=== PATIENT | male | born 1985 | race Caucasian/White ===

== ENCOUNTER 2020-02-24 11:51 | Emergency (ER) | payer MEDICAID ==
[~2020-02-24] VITALS: Ht 177.8 cm; Wt 68.0 kg
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
[2020-02-24 12:13] VITALS: BP 146/97
[2020-02-24] MEDS ORDERED: CYCLOBENZAPRINE10 MG ORAL (12:21)
[2020-02-24] MEDS ORDERED: NORCO 5-325 TA1 EAC1 ORAL (12:21)
[2020-02-24] MEDS ORDERED: IBUPROFEN600 M1 ORAL (12:21)
[2020-02-24] MEDS ORDERED: GENTAK5 ML RIGHT EYE (12:23)
[2020-02-24 12:30] VITALS: BP 146/97
--- NOTE | 2020-02-24 12:30 | NUR ---
ER DISCHARGE NOTE: Patient is cleared to be discharged per ERMD, pt is aox4, on room air, with stable vital signs. pt was given dc and prescription instructions, pt was able to verbalize understanding, pt id bandremoved without complications. pt is able to ambulate with steady gait. pt took all belongings.
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
== END 2020-02-24 13:20 | disposition home or self-care (01) ==
LOC: EMR 13:04
DX: S62.92XA Unspecified fracture of left hand, initial encounter for closed fracture (principal); X58.XXXA Exposure to other specified factors, initial encounter; Y92.9 Unspecified place or not applicable; H10.9 Unspecified conjunctivitis; M54.10 Radiculopathy, site unspecified
CPT/HCPCS: 99282

== ENCOUNTER 2020-06-13 20:19 | Emergency (ER) | payer MEDICAID ==
[~2020-06-13] VITALS: Ht 177.8 cm; Wt 70.3 kg
[~2020-06-13 20:19] MED LIST: CYCLOBENZAPRINE10 MG ORAL; GENTAK5 ML RIGHT EYE; IBUPROFEN600 M1 ORAL; NORCO 5-325 TA1 EAC1 ORAL
[2020-06-13 20:52] VITALS: BP 151/96
--- NOTE | 2020-06-13 20:54 | NUR ---
ED Nurse Note: Patient came in ambulatory triage complaints of abcess on right lower leg and left upper leg x3 days, patient AOx4, ambulatory, vital signs stable
[2020-06-13] MEDS ORDERED: Lidocaine 1%/ 10mg/ml/EPI 0.01mg/ml 20ml INJ ONE (21:00)
[2020-06-13] MEDS ORDERED: HYDROCODON-ACE1 EA15 ORAL (21:05)
[2020-06-13] MEDS ORDERED: AUGMENTIN 875-1 EAC1 ORAL (21:05)
[2020-06-13] MEDS ORDERED: BACTRIM DS TAB1 EAC1 ORAL (21:05)
--- NOTE | 2020-06-13 21:11 | NUR ---
ER DISCHARGE NOTE: Patient is cleared to be discharged per ERMD, pt is aox4, on room air, with stable vital signs. pt was given dc and prescription instructions, pt was able to verbalize understanding, pt id band removed without complications. pt is able to ambulate with steady gait. pt took all belongings.
--- NOTE | 2020-06-13 23:12 | Emergency Room Report ---
History of Present Illness General Chief Complaint: Skin Rash/Abscess Source: Patient Present Illness HPI Patient is a 34-year-old male presents for increased pain to the right lower extremity. Onset over the past 3 days. Patient reports having small lesion to his leg which had increased in size over time. Had attempted to squeeze this with subsequent redness and pain. Previous history of similar abscess in the past per denies any injection drug use. Patient is cigarette smoker. Denies any fever. Denies any groin injuries. 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 Patient History Past Medical History: see triage record Reviewed Nursing Documentation: PMH: Agreed; PSxH: Agreed Nursing Documentation-PMH Past Medical History: No Stated History Review of Systems All Other Systems: negative except mentioned in HPI Physical Exam Vital Signs Date Time Temp Pulse Resp B/P (MAP) Pulse Ox O2 Delivery O2 Flow Rate FiO2 06/13/20 20:28 98.4 110 20 151/96 (114) 98 Room Air General Appearance: well appearing, no apparent distress, alert, GCS 15 Head: normocephalic, atraumatic ENT: hearing grossly normal, normal voice Neck: full range of motion, supple Respiratory: lungs clear, no respiratory distress, speaking full sentences Gastrointestinal: normal inspection, non tender Musculoskeletal: no calf tenderness Neurologic: normal gait Psychiatric: mood/affect normal Skin: other - Area to the lateral aspect of the right knee approximately 2 cm in diameter with erythema and induration. Procedures Incision and Drainage Incision and Drainage : Consent: Emergent Blade Size: 11 I & D Procedure: betadine prep Wound Location: lower extremity - Right side Wound Explored: clean Anesthesia: Lidocaine w/ Epi Volume Anesthetic (ccs): 2 Patient Tolerated: Well Complications: None Medical Decision Making Diagnostic Impression: Primary Impression: Abscess ER Course Presented for skin lesion. Differential diagnosis include was not limited to abscess, cellulitis, insect bite, among others. Patient has a benign exam and does not appear to require any imaging or laboratory testing at this time. Patient's right leg appears to have a small abscess. Patient was consented for incision and drainage. Was able to incise the area with small amount of purulent material noted. Patient tolerated this well. He was given prescription for pain medication as well as oral antibiotics. Patient advised to return if he had a worsening of condition or other concerns. He is advised t o have wound checked in 2 to 3 days. This medical record is generated with [employer] television tube inspector software. There may be some television tube inspector discrepancies related to use of this software Last Vital Signs Date Time Temp Pulse Resp B/P (MAP) Pulse Ox O2 Delivery O2 Flow Rate FiO2 06/13/20 20:52 98.4 20 151/96 98 Room Air 06/13/20 20:28 110 Status: improved Disposition: HOME, SELF-CARE Condition: Stable Scripts Hydrocodone/Acetaminophen 5-325* (HYDROCODONE/ACETAMINOPHEN 5-325*) 1 Each Tablet 1 TAB ORAL Q6H PRN for For Pain, #12 TAB 0 Refills Prov: David Vo MD 06/13/20 Trimethoprim/Sulfamethoxazole 160/800* (BACTRIM DS TABLET*) 1 Each Tablet 1 TAB ORAL Q12H, #14 TAB 0 Refills Prov: David Vo MD 06/13/20 Amoxicillin/Potassium Clav 875-125* (AUGMENTIN 875-125 TABLET*) 1 Each Tablet 1 TAB ORAL TWICE A DAY, #20 TAB Prov: David Vo MD 06/13/20 Referrals: [facility] (PCP) Patient Instructions: Abscess Additional Instructions: Follow up for recheck of skin wound in 2-3 days. Return if increased fever, wor sening leg swelling or any other concerns. David Vo MD Jun 13, 2020 23:12
== END 2020-06-13 21:11 | disposition home or self-care (01) ==
LOC: EMR 21:00
DX: L02.415 Cutaneous abscess of right lower limb (principal); F17.200 Nicotine dependence, unspecified, uncomplicated
CPT/HCPCS: 10060; Z7502; 99282